=== PATIENT | male | born 1955 | race Caucasian/White ===

== ENCOUNTER 2021-07-23 10:29 | Outpatient (CLI) | payer MEDICARE, BC | END 2021-07-23 10:30 | disposition home or self-care (01) | LOC: BICCT 10:29 | PROVIDERS: ATTEND Nurse Practitioner Family | DX: K76.0 Fatty (change of) liver, not elsewhere classified (principal); N28.1 Cyst of kidney, acquired; N28.89 Other specified disorders of kidney and ureter; K57.30 Diverticulosis of large intestine without perforation or abscess without bleeding | CPT/HCPCS: 74177; 82565 ==

== ENCOUNTER 2024-05-03 07:53 | Outpatient (CLI) | payer MEDICARE, BC | END 2024-05-03 07:54 | disposition home or self-care (01) | LOC: BICCT 07:53 | PROVIDERS: ATTEND Physician Assistant Medical | DX: K76.0 Fatty (change of) liver, not elsewhere classified (principal); R16.1 Splenomegaly, not elsewhere classified; R19.7 Diarrhea, unspecified; R13.10 Dysphagia, unspecified; R63.4 Abnormal weight loss | CPT/HCPCS: 74177; 82565 ==